=== PATIENT | female | born 1995 | race Caucasian/White ===

== ENCOUNTER 2017-10-30 18:22 | Outpatient (CLI) | END 2017-10-30 22:00 | disposition home or self-care (01) ==

== ENCOUNTER 2017-11-06 16:42 | Outpatient (CLI) | END 2017-11-06 20:48 | disposition home or self-care (01) ==

== ENCOUNTER 2017-11-07 20:35 | Inpatient (IN) | END 2017-11-10 14:50 | disposition home or self-care (01) | DRG 775 ==